=== PATIENT | male | born 1980 | race Caucasian/White ===

== ENCOUNTER 2021-09-10 02:54 | Emergency (ER) | payer SELFPAY ==
[~2021-09-10] VITALS: Ht 177.8 cm; Wt 83.9 kg
--- NOTE | 2021-09-10 02:57 | NUR ---
PATIENT BIB [facility]. PATIENT EXAMINED BY DR. AUGUSTE. PATIENT MEDICALLY CLEARED AND RELEASED IN CUSTODY IN STABLE CONDITION. ORIGINAL PRE-BOOK FORM GIVEN TO OFFICER GLORIA.
--- NOTE | 2021-09-10 02:57 | NUR ---
NO NURSING INTERVENTIONS NEEDED. PT ASSESED AND D/C'D BY JARVIS.
== END 2021-09-10 02:57 ==
LOC: MED 02:54
DX: Z02.89 Encounter for other administrative examinations (principal)
CPT/HCPCS: 99283